=== PATIENT | male | born 1995 | race Caucasian/White ===

== ENCOUNTER 2020-06-01 20:12 | Emergency (ER) | payer BC, MEDICAID ==
[~2020-06-01] VITALS: Ht 185.4 cm; Wt 153.9 kg
[2020-06-01] MEDS ORDERED: ONDANSETRON 2MG/ML, 2ML IVPush ONE (20:30)
[2020-06-01] MEDS ORDERED: MORPHINE SULFATE 4 MG/ML, 1ML IVPush PRN (20:30)
[2020-06-01] MEDS ORDERED: SODIUM CHLORIDE FLUSH 10ML SYR IVF ONE (20:30)
[2020-06-01] MEDS ORDERED: ONDANSETRON 2MG/ML, 2ML ONE (20:42)
[2020-06-01] MEDS ORDERED: MORPHINE SULFATE 4 MG/ML, 1ML ONE (20:43)
--- NOTE | 2020-06-01 21:15 | NUR ---
PT TOLERATED PIV MEDS GIVEN LABS AND URINE SENT
[2020-06-01 21:18] LABS: MICROSCOPIC AUTO
[2020-06-01 21:20] LABS: BASOPHILS % (AUTO) 0 % (0-1); EOSINOPHILS % (AUTO) 1 % (1-7); LYMPHOCYTES % (AUTO) 24 % (22-44); MEAN CORPUSCULAR HEMOGLOBIN 30.1 pg (27.5-34.5); MEAN CORPUSCULAR HGB CONC 34.2 g/dL (33.2-36.2); MONOCYTES % (AUTO) 5 % (2-9); NEUTROPHILS % (AUTO) 69 % (42-75); PLATELET COUNT 337 x10^3/uL (130-400); RED BLOOD COUNT 4.96 x10^6/uL (4.38-5.82)
[2020-06-01 21:22] LABS: MD NO
[2020-06-01 21:28] LABS: ALBUMIN 3.9 g/dL (3.4-5.0); ANION GAP 5 mmol/L (5-15); CALCIUM 8.4 mg/dL (8.5-10.1); CHLORIDE 108 mmol/L (98-107); CREATININE 1.15 mg/dL (0.7-1.3)
[2020-06-01 22:52] VITALS: BP 115/52
[2020-06-01] MEDS ORDERED: CEFTRIAXONE PMX 1GM/50ML 50 ML ONE (23:15)
[2020-06-01] MEDS ORDERED: CEFTRIAXONE PMX 1GM/50ML 50 ML IVPB ONE (23:30)
== END 2020-06-01 23:36 | disposition home or self-care (01) ==
LOC: ED 20:26
DX: N30.00 Acute cystitis without hematuria (principal)
CPT/HCPCS: 36415; 74176; 76870; 80048; 81001; 82040; 85025; 87086; 87491; 87591; 96374; 96375; 99285; J0696; J2270; J2405